=== PATIENT | female | born 1950 | race Two or more races ===

== ENCOUNTER 2023-12-13 08:24 | Emergency (ER) | payer MEDICARE, MEDICAID ==
[~2023-12-13] VITALS: Ht 149.9 cm; Wt 75.0 kg
[2023-12-13] MEDS ORDERED: AMLO2.5T29 PO (08:34)
[2023-12-13] MEDS ORDERED: LISI40TA9 PO (08:34)
[2023-12-13] MEDS ORDERED: LOVA20TA3 PO (08:34)
[2023-12-13] MEDS ORDERED: CALC-462 PO (08:34)
[2023-12-13] MEDS ORDERED: METO50 PO (08:34)
[2023-12-13 08:37] VITALS: TEMP 99.2
[2023-12-13 08:47] LABS: COVID AG,FIA SOURCE NASAL SWAB
[2023-12-13 08:59] LABS: INFLUENZA TYPE A NEGATIVE FOR TYPE A (NEGATIVE); INFLUENZA TYPE B NEGATIVE FOR TYPE B (NEGATIVE)
[2023-12-13 09:00] LABS: SARS-COV2 (COVID) ANTIGEN,FIA Negative (Negative)
[2023-12-13 09:49] LABS: BASOPHILS % (AUTO) 1.6 % (0.0-2.0); HEMATOCRIT 38.6 % (36-46); HEMOGLOBIN 13.1 g/dL (12.0-16.0); LYMPHOCYTES # (AUTO) 1.5 K/uL (1.0-4.8); LYMPHOCYTES % (AUTO) 31.9 % (22.0-44.0); MEAN CORPUSCULAR HEMOGLOBIN 34.1 pg (26.0-34.0); MEAN CORPUSCULAR HGB CONC 33.9 G/dL (31.0-37.0); MEAN CORPUSCULAR VOLUME 101 fL (80-100); MONOCYTES # (AUTO) 0.5 K/uL (0.1-1.0); MONOCYTES % (AUTO) 11.2 % (2.0-9.0); NEUTROPHILS # (AUTO) 2.6 K/uL (1.8-7.7); NEUTROPHILS % (AUTO) 53.3 % (40.0-70.0); PLATELET COUNT (AUTO) 204 K/uL (150-450); RED BLOOD CELL COUNT(AUTO) 3.84 MIL/uL (4.00-5.20); RED CELL DISTRIBUTION WIDTH 13.6 % (11.5-14.5); WHITE BLOOD COUNT (AUTO) 4.8 K/uL (4.5-11.0)
[2023-12-13 10:03] LABS: CALCIUM, TOTAL 9.2 mg/dL (8.8-10.5); CREATININE 0.91 mg/dL (0.60-1.30); POTASSIUM 3.9 mmol/L (3.5-5.1)
[2023-12-13 10:05] LABS: TROPONIN I-HIGH SENSITIVITY 9 ng/L (<51)
[2023-12-13 10:09] LABS: ALBUMIN 4.1 g/dL (3.4-5.0); BILIRUBIN,TOTAL 0.5 mg/dL (0.1-1.0); TOTAL PROTEIN, SERUM 8.3 g/dL (6.4-8.2)
[2023-12-13 10:14] LABS: RBC MORPHOLOGY COMMENT ABNORMAL RBC MORPH
[2023-12-13] MEDS ORDERED: BENZ-39 PO (11:04)
[2023-12-13 11:15] VITALS: BP 148/87; PULSE 84; RESP 18
== END 2023-12-13 11:16 | disposition home or self-care (01) ==
LOC: EMS 08:24
DX: J06.9 Acute upper respiratory infection, unspecified (principal); I10 Essential (primary) hypertension; Z90.722 Acquired absence of ovaries, bilateral; Z20.822 Contact with and (suspected) exposure to COVID-19
CPT/HCPCS: 71045; 80053; 83880; 84484; 85025; 87804; 93005; 99285; 36415-L1; 36415-TC

== ENCOUNTER 2024-10-24 12:58 | Emergency (ER) | payer MEDICARE, MEDICAID ==
[~2024-10-24] VITALS: Ht 154.9 cm; Wt 79.5 kg
[~2024-10-24 12:58] MED LIST: AMLO2.5T29 PO; BENZ-39 PO; CALC-462 PO; LISI40TA9 PO; LOVA20TA3 PO; METO50 PO
[2024-10-24] MEDS ORDERED: ALEN70TA65 PO (13:02)
[2024-10-24] MEDS ORDERED: GABA-1404 PO (13:02)
[2024-10-24] MEDS ORDERED: BACL5TAB PO (13:02)
[2024-10-24 13:03] VITALS: BP 131/59; PULSE 72; RESP 18; TEMP 97.9; O2SAT 98
[2024-10-24] MEDS: CefTRIAXone SODIUM 1 GM/VIAL IM ONE (16:06)
[2024-10-24] MEDS: LIDOCAINE/PF 1% 2 ML VIAL IM ONE (16:06)
[2024-10-24] MEDS ORDERED: BACTDSB PO (16:23)
== END 2024-10-24 16:33 | disposition home or self-care (01) ==
LOC: EMS 12:58
DX: L03.115 Cellulitis of right lower limb (principal); I10 Essential (primary) hypertension; Z85.43 Personal history of malignant neoplasm of ovary; Z79.899 Other long term (current) drug therapy
CPT/HCPCS: 99283; 73630; 96372; J0696; J3490

== ENCOUNTER 2025-07-04 14:12 | Emergency (ER) | payer MEDICARE, MEDICAID ==
[~2025-07-04] VITALS: Ht 162.6 cm; Wt 81.8 kg
[~2025-07-04 14:12] MED LIST changes: +ALEN70TA65 PO; +BACL5TAB PO; +BACTDSB PO; -BENZ-39 PO; -CALC-462 PO; +GABA-1404 PO; +LISI-1024 PO; -LISI40TA9 PO
[2025-07-04 14:18] VITALS: TEMP 98
[2025-07-04] MEDS ORDERED: ALLO100T PO (14:22)
[2025-07-04] MEDS ORDERED: CALC-1085 PO (14:22)
[2025-07-04] MEDS ORDERED: RIVA20TA PO (14:22)
[2025-07-04] MEDS: ACETAMINOPHEN 500 MG TABLET PO ONE (14:46)
[2025-07-04 16:57] VITALS: BP 140/71; PULSE 77; RESP 18; O2SAT 97
== END 2025-07-04 18:42 | disposition home or self-care (01) ==
LOC: EMS 14:12
DX: S09.90XA Unspecified injury of head, initial encounter (principal); I10 Essential (primary) hypertension; M10.9 Gout, unspecified; Z90.721 Acquired absence of ovaries, unilateral; Z85.43 Personal history of malignant neoplasm of ovary; Z79.01 Long term (current) use of anticoagulants; Z79.899 Other long term (current) drug therapy; W01.0XXA Fall on same level from slipping, tripping and stumbling without subsequent striking against object, initial encounter; Y93.01 Activity, walking, marching and hiking; Y92.89 Other specified places as the place of occurrence of the external cause; Y99.8 Other external cause status
CPT/HCPCS: 70450; 72125; 72131; 99284